=== PATIENT | male | born 1945 | race Caucasian/White ===

== ENCOUNTER → 2017-10-05 08:44 | Outpatient (CLI) | payer MEDICARE, OTHER, SELFPAY ==
[2017-10-05 13:22] LABS: Basophils % 0.3 % (0.1-2.0); Eosinophils # 0.4 K/mm3 (0.0-0.4); Eosinophils % 3.1 % (0.1-12.0); Hematocrit 33.7 % (42.0-52.0); Hemoglobin 10.8 g/dL (14.1-18.0); Lymphocytes # 3.4 K/mm3 (0.7-4.5); Lymphocytes % 29.6 K/mm3 (10-50); Mean Corpuscular Hemoglobin 30.7 pg (27.0-31.2); Mean Corpuscular Volume 95.9 fl (80-94); Mean Platelet Volume 8.1 fl (7.4-10.4); Monocytes # 0.7 K/mm3 (0.1-1.0); Monocytes % 5.8 % (1.7-9.3); Neutrophils % 61.4 % (37.0-80.0); Platelet Count 242 K/mm3 (142-424); Red Blood Count 3.51 M/mm3 (4.60-6.20); Red Cell Distribution Width 13.4 % (11.5-17.5); White Blood Count 11.4 K/mm3 (4.8-10.8)
[2017-10-05 13:48] LABS: Albumin Level 3.5 gm/dL (3.4-5.0); Anion Gap 14.6 mEq/L (5-15); Blood Urea Nitrogen 23 mg/dL (7-18); Calcium 8.9 mg/dL (8.5-10.1); Carbon Dioxide 27 mmol/L (21.0-32.0); Chloride 103 mmol/L (98-107); Estimated Glomerular Filt Rate 16 ml/min (>60); Ferritin 544 ng/mL (8-388); GFR (African American) 20 ML/MIN (>60); Glucose 209 mg/dL (74-106); Phosphorous 4.2 mg/dL (2.4-4.9); Potassium 4.6 mmoL/L (3.5-5.1); Sodium 140 mmol/L (136-145); Uric Acid 6.2 mg/dL (2.6-7.2)
[2017-10-05 13:54] LABS: Creatinine,Serum 3.65 mg/dL (0.70-1.30)
[2017-10-06 09:17] LABS: Iron 76 ug/dL (38-169); UIBC 153 ug/dL (111-343)
[2017-10-07 06:28] LABS: Iron Saturation 33 (15-55); Parathyroid Hormone Intact 36 pg/mL (15-65); Vitamin D 25 Hydroxy 45.4 ng/mL (30.0-100.0)
== END ==
PROVIDERS: PCP Family Medicine; Visit Provider Internal Medicine Nephrology
DX: E78.5 Hyperlipidemia, unspecified (principal); N18.9 Chronic kidney disease, unspecified; I10 Essential (primary) hypertension; N18.4 Chronic kidney disease, stage 4 (severe); E55.9 Vitamin D deficiency, unspecified; E11.21 Type 2 diabetes mellitus with diabetic nephropathy; E11.40 Type 2 diabetes mellitus with diabetic neuropathy, unspecified; E11.319 Type 2 diabetes mellitus with unspecified diabetic retinopathy without macular edema; M10.9 Gout, unspecified; E87.5 Hyperkalemia
CPT/HCPCS: 36415; 80069; 82652; 82728; 83550; 83970; 84550; 85025

== ENCOUNTER → 2017-10-07 10:44 | Outpatient (REF) | payer MEDICARE, MEDICAID, SELFPAY ==
[2017-10-08 09:19] LABS: Creatinine, Urine 67.4 mg/dL (Not Estab.); Microalbumin, Urine 9.7 ug/mL (Not Estab.)
== END ==
LOC: LAB 10:44
PROVIDERS: Visit Provider Internal Medicine Nephrology
DX: N18.9 Chronic kidney disease, unspecified (principal); I10 Essential (primary) hypertension; N18.4 Chronic kidney disease, stage 4 (severe); E55.9 Vitamin D deficiency, unspecified; E11.21 Type 2 diabetes mellitus with diabetic nephropathy; E11.40 Type 2 diabetes mellitus with diabetic neuropathy, unspecified; E11.319 Type 2 diabetes mellitus with unspecified diabetic retinopathy without macular edema; M10.9 Gout, unspecified; E78.5 Hyperlipidemia, unspecified; E87.5 Hyperkalemia
CPT/HCPCS: 82043; 82570

== ENCOUNTER → 2017-11-07 10:07 | Outpatient (CLI) | payer MEDICARE, OTHER, SELFPAY ==
[2017-11-07 10:17] LABS: Basophils % 0.3 % (0.1-2.0); Eosinophils # 0.2 K/mm3 (0.0-0.4); Eosinophils % 1.4 % (0.1-12.0); Hemoglobin 10.7 g/dL (14.1-18.0); Lymphocytes # 1.6 K/mm3 (0.7-4.5); Lymphocytes % 14.2 K/mm3 (10-50); Mean Corpuscular HGB Conc 31.4 g/dL (31.8-35.4); Mean Corpuscular Hemoglobin 29.6 pg (27.0-31.2); Mean Corpuscular Volume 94.3 fl (80-94); Mean Platelet Volume 8.8 fl (7.4-10.4); Monocytes # 0.8 K/mm3 (0.1-1.0); Monocytes % 6.8 % (1.7-9.3); Neutrophils # 8.7 K/mm3 (1.8-7.8); Neutrophils % 77.3 % (37.0-80.0); Platelet Count 219 K/mm3 (142-424); Red Cell Distribution Width 13.3 % (11.5-17.5); White Blood Count 11.2 K/mm3 (4.8-10.8)
[2017-11-07 10:25] LABS: Albumin Level 3.5 gm/dL (3.4-5.0); Anion Gap 10.8 mEq/L (5-15); Blood Urea Nitrogen 41 mg/dL (7-18); Calcium 9.2 mg/dL (8.5-10.1); Carbon Dioxide 29 mmol/L (21.0-32.0); Chloride 102 mmol/L (98-107); Creatinine,Serum 3.39 mg/dL (0.70-1.30); Estimated Glomerular Filt Rate 18 ml/min (>60); GFR (African American) 22 ML/MIN (>60); Glucose 206 mg/dL (74-106); Phosphorous 4.5 mg/dL (2.4-4.9); Potassium 4.8 mmoL/L (3.5-5.1); Sodium 137 mmol/L (136-145)
== END ==
PROVIDERS: PCP Family Medicine; Visit Provider Internal Medicine Nephrology
DX: N18.9 Chronic kidney disease, unspecified (principal)
CPT/HCPCS: 36415; 80069; 85025

== ENCOUNTER 2017-11-07 16:46 | Emergency (ER) | payer MEDICARE, MEDICAID, SELFPAY ==
[2017-11-07 16:46] VITALS: BP 174/75; PULSE 86; RESP 20; TEMP 37.1; O2SAT 98; BMI 28.3
--- NOTE | 2017-11-07 17:04 | XR_ITS ---
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 There is flexion deformity of digits 1, 2, and 4. No acute fracture or dislocation evident. IMPRESSION: Hammertoe deformity of first, second, and fourth toes. 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
[2017-11-07 17:31] LABS: Uric Acid 6.5 mg/dL (2.6-7.2)
[2017-11-07 17:38] LABS: Lactic Acid 1.1 mmol/L (0.4-2.0)
[2017-11-07 18:16] VITALS: BP 189/79; PULSE 83; RESP 18; TEMP 37; O2SAT 96
--- NOTE | 2017-11-07 18:35 | [facility].EDGENADL ---
ED Disposition Clinical Impression: Right foot pain, Chronic renal failure, stage 3 (moderate) Disposition: Home, Self-Care Condition on Discharge: Good Instructions: High Blood Pressure, Chronic Renal Failure, DI for Foot Pain Additional Instructions: Please follow-up with the porter head, Dr. Nanette Mcfadden, within the next 1-2 days, for additional outpatient workup. Please follow-up with your rabbet operator, Dr. Booker, scheduled on . Please increase your Amlodipine/Norvasc from 5 mg daily to 10 mg daily. Take the leftover pills at home (two 5mg pills), prior to filling the new prescription (10mg). Prescriptions: Amlodipine Besylate [Norvasc 10mg tablet] 10 mg PO DAILY #90 tab Referrals: Nessa Mcfadden DPM [Physician] - Jd Fox [Primary Care Provider] - Luis Angel Booker [Referring] - Time of Disposition: 18:44 - Critical Care Critical Care Time: No Attestation: On 11/07/17, the high probability of a clinically significant, sudden or life threatening deterioration of the following system(s) required my full and direct attention, intervention and personal management. The time I documented below is in addition to time spent performing reported procedures but includes the following listed in this critical care notation. Medical Decision Making - Medical Records Medical records reviewed: Yes: I reviewed the patient's medical records. - Zac Inquiry Pt receiving controlled substance: No Vital Signs: 11/07/17 16:46 11/07/17 18:16 11/07/17 19:23 Temperature 98.8 F 98.6 F 98.4 F Temperature Source Oral Oral Oral Pulse Rate 89 Pulse Rate [Right Radial] 86 83 Respiratory Rate 20 18 20 Blood Pressure 166/99 Blood Pressure [Right Arm] 174/75 189/79 Blood Pressure Mean [Right Arm] 108 115 Blood Pressure Source [Right Arm] Automatic Cuff Automatic Cuff Blood Pressure Position Sitting Blood Pressure Position [Right Arm] Sitting Supine 02 Sat by Pulse Oximetry 98 96 Oxygen Delivery Method Room Air Room Air Room Air - Lab Data Lab results reviewed: Yes: I reviewed the patient's lab results. Lab Results 11/07/17 17:10: Lactic Acid 1.1 11/07/17 17:10: Uric Acid 6.5 Orders (Tests/Meds): ED MEDICATIONS Discontinued Medications Generic Name Dose Route Start Last Admin Trade Name Freq PRN Reason Stop Dose Admin Clonidine HCl 0.2 mg 11/07/17 18:43 11/07/17 19:05 Clonidine 0.2mg Tablet PO 11/07/17 18:44 0.2 mg ONCE ONE Administration - Radiology Data #1 Image(s): Foot/Toes (right) Image Reviewed: Yes I reviewed the patient's radiology results, Yes I reviewed the patient's radiology image, Yes I have reviewed radiologist's interpretation no fx, hammertoe deformity - Reevaluation(s) Time: 18:40 Reevaluation #1: Patient's kidney function appears to be worsening, patient strongly encouraged to follow-up with rabbet operator, noted to initiate hemodialysis. Also refer him to follow-up with a porter head regarding his right foot hammertoes. General Adult HPI - General Chief complaint: PAIN Stated complaint: CHRONIC R FOOT PAIN Time Seen by Provider: 11/07/17 17:40 Mode of Arrival: EMS Limitations: No Limitations Description of Symptoms (Recalled from ER Triage Doc. by RN): PAIN AND SWELLING TO HIS FOOT , NO OPEN AREAS PAIN X1 WEEK , HOME HEALTH NURSE REQUESTED HIM TO COME TO THE ER - History of Present Illness HPI narrative: Patient is here with right foot pain, and right foot swelling. He has been previously told that he has chronic renal failure and he will need dialysis, but the patient has refused so far to undergo hemodialysis. He has an appointment with the rabbet operator, which he admits on deliberately putting off, because he is afraid he may be told again, that he needs to go through hemodialysis. His right foot pain is nontraumatic, he has mild swelling, for the past couple of weeks. MD complaint: Right foot pain Onset (ago): week(s) (3) Loc
--- NOTE | 2017-11-07 18:41 | ED_ITS ---
ED Disposition Clinical Impression: Right foot pain, Chronic renal failure, stage 3 (moderate) Disposition: Home, Self-Care Condition on Discharge: Good Instructions: High Blood Pressure, Chronic Renal Failure, DI for Foot Pain Additional Instructions: Please follow-up with the park ranger, Dr. Nanette Mcfadden, within the next 1-2 days, for additional outpatient workup. Please follow-up with your stone crusher operator, Dr. Booker, scheduled on . Please increase your Amlodipine/Norvasc from 5 mg daily to 10 mg daily. Take the leftover pills at home (two 5mg pills), prior to filling the new prescription (10mg). Prescriptions: Amlodipine Besylate [Norvasc 10mg tablet] 10 mg PO DAILY #90 tab Referrals: Nessa Mcfadden DPM [Physician] - Jd Fox [Primary Care Provider] - Luis Angel Booker [Referring] - Time of Disposition: 18:44 - Critical Care Critical Care Time: No Attestation: On 11/07/17, the high probability of a clinically significant, sudden or life threatening deterioration of the following system(s) required my full and direct attention, intervention and personal management. The time I documented below is in addition to time spent performing reported procedures but includes the following listed in this critical care notation. Medical Decision Making - Medical Records Medical records reviewed: Yes: I reviewed the patient's medical records. - Zac Inquiry Pt receiving controlled substance: No Vital Signs: 11/07/17 16:46 11/07/17 18:16 11/07/17 19:23 Temperature 98.8 F 98.6 F 98.4 F Temperature Source Oral Oral Oral Pulse Rate 89 Pulse Rate [Right Radial] 86 83 Respiratory Rate 20 18 20 Blood Pressure 166/99 Blood Pressure [Right Arm] 174/75 189/79 Blood Pressure Mean [Right Arm] 108 115 Blood Pressure Source [Right Arm] Automatic Cuff Automatic Cuff Blood Pressure Position Sitting Blood Pressure Position [Right Arm] Sitting Supine 02 Sat by Pulse Oximetry 98 96 Oxygen Delivery Method Room Air Room Air Room Air - Lab Data Lab results reviewed: Yes: I reviewed the patient's lab results. Lab Results 11/07/17 17:10: Lactic Acid 1.1 11/07/17 17:10: Uric Acid 6.5 Orders (Tests/Meds): ED MEDICATIONS Discontinued Medications Generic Name Dose Route Start Last Admin Trade Name Freq PRN Reason Stop Dose Admin Clonidine HCl 0.2 mg 11/07/17 18:43 11/07/17 19:05 Clonidine 0.2mg Tablet PO 11/07/17 18:44 0.2 mg ONCE ONE Administration - Radiology Data #1 Image(s): Foot/Toes (right) Image Reviewed: Yes I reviewed the patient's radiology results, Yes I reviewed the patient's radiology image, Yes I have reviewed radiologist's interpretation no fx, hammertoe deformity - Reevaluation(s) Time: 18:40 Reevaluation #1: Patient's kidney function appears to be worsening, patient strongly encouraged to follow-up with stone crusher operator, noted to initiate hemodialysis. Also refer him to follow-up with a park ranger regarding his right foot hammertoes. General Adult HPI - General Chief complaint: PAIN Stated complaint: CHRONIC R FOOT PAIN Time Seen by Provider: 11/07/17 17:40 Mode of Arrival: EMS Limitations: No Limitations Description of Symptoms (Recalled from ER Triage Doc. by RN): PAIN AND SWELLING TO HIS FOOT , NO OPEN AREAS PAIN X1 WEEK , HOME HEALTH NURSE REQUES
[2017-11-07 19:23] VITALS: BP 166/99; PULSE 89; RESP 20; TEMP 36.9; O2SAT 95
== END 2017-11-07 19:24 | disposition home or self-care (01) ==
PROVIDERS: Emergency Provider Emergency Medicine; Family Provider Family Medicine; PCP Family Medicine
DX: M79.671 Pain in right foot (principal); N18.3 Chronic kidney disease, stage 3 (moderate)
CPT/HCPCS: 36415; 73630; 80069; 83605; 84550; 85025; 99283

== ENCOUNTER → 2017-12-08 10:47 | Outpatient (REF) | payer MEDICARE, MEDICAID, SELFPAY ==
[2017-12-08 13:28] LABS: Hemoglobin A1C 5.8 % (0.0-7.0)
== END ==
LOC: LAB.CARL 10:47
PROVIDERS: Visit Provider Podiatrist
DX: E11.42 Type 2 diabetes mellitus with diabetic polyneuropathy (principal); L97.521 Non-pressure chronic ulcer of other part of left foot limited to breakdown of skin; L97.511 Non-pressure chronic ulcer of other part of right foot limited to breakdown of skin
CPT/HCPCS: 83036

== ENCOUNTER → 2017-12-28 10:21 | Outpatient (CLI) | payer MEDICARE, MEDICAID, SELFPAY ==
[2017-12-28 13:48] LABS: Basophils # 0.1 K/mm3 (0-0.2); Basophils % 0.6 % (0.1-2.0); Eosinophils # 0.3 K/mm3 (0.0-0.4); Eosinophils % 3.6 % (0.1-12.0); Hematocrit 26.9 % (42.0-52.0); Hemoglobin 8.6 g/dL (14.1-18.0); Lymphocytes # 1.8 K/mm3 (0.7-4.5); Lymphocytes % 21.6 K/mm3 (10-50); Mean Corpuscular HGB Conc 31.9 g/dL (31.8-35.4); Mean Corpuscular Hemoglobin 28.6 pg (27.0-31.2); Mean Corpuscular Volume 89.6 fl (80-94); Mean Platelet Volume 7.7 fl (7.4-10.4); Monocytes # 0.6 K/mm3 (0.1-1.0); Monocytes % 6.9 % (1.7-9.3); Neutrophils # 5.6 K/mm3 (1.8-7.8); Neutrophils % 67.4 % (37.0-80.0); Platelet Count 257 K/mm3 (142-424); Red Cell Distribution Width 13.8 % (11.5-17.5); White Blood Count 8.2 K/mm3 (4.8-10.8)
[2017-12-28 14:14] LABS: Albumin Level 3.4 gm/dL (3.4-5.0); Anion Gap 15.6 mEq/L (5-15); Blood Urea Nitrogen 31 mg/dL (7-18); Carbon Dioxide 26 mmol/L (21.0-32.0); Chloride 102 mmol/L (98-107); Estimated Glomerular Filt Rate 12 ml/min (>60); GFR (African American) 15 ML/MIN (>60); Glucose 138 mg/dL (74-106); Phosphorous 4.4 mg/dL (2.4-4.9); Potassium 4.6 mmoL/L (3.5-5.1); Sodium 139 mmol/L (136-145)
[2017-12-28 14:17] LABS: Creatinine,Serum 4.73 mg/dL (0.70-1.30)
== END ==
PROVIDERS: PCP Family Medicine; Visit Provider Internal Medicine Nephrology
DX: N18.4 Chronic kidney disease, stage 4 (severe) (principal); I10 Essential (primary) hypertension; E55.9 Vitamin D deficiency, unspecified; E11.21 Type 2 diabetes mellitus with diabetic nephropathy; E11.40 Type 2 diabetes mellitus with diabetic neuropathy, unspecified; E11.319 Type 2 diabetes mellitus with unspecified diabetic retinopathy without macular edema; M10.9 Gout, unspecified; E87.5 Hyperkalemia; E78.5 Hyperlipidemia, unspecified
CPT/HCPCS: 36415; 80069; 85025

== ENCOUNTER → 2018-01-24 11:35 | Outpatient (CLI) | payer MEDICARE, MEDICAID, SELFPAY ==
[2018-01-24 13:21] LABS: Basophils % 0.2 % (0.1-2.0); Eosinophils # 0.4 K/mm3 (0.0-0.4); Eosinophils % 4.4 % (0.1-12.0); Hematocrit 27.8 % (42.0-52.0); Hemoglobin 8.5 g/dL (14.1-18.0); Lymphocytes # 1.8 K/mm3 (0.7-4.5); Lymphocytes % 21.6 K/mm3 (10-50); Mean Corpuscular HGB Conc 30.5 g/dL (31.8-35.4); Mean Corpuscular Hemoglobin 27.6 pg (27.0-31.2); Mean Corpuscular Volume 90.5 fl (80-94); Mean Platelet Volume 7.7 fl (7.4-10.4); Monocytes # 0.6 K/mm3 (0.1-1.0); Monocytes % 7.2 % (1.7-9.3); Neutrophils # 5.6 K/mm3 (1.8-7.8); Neutrophils % 66.6 % (37.0-80.0); Platelet Count 203 K/mm3 (142-424); Red Blood Count 3.07 M/mm3 (4.60-6.20); Red Cell Distribution Width 14.6 % (11.5-17.5); White Blood Count 8.4 K/mm3 (4.8-10.8)
[2018-01-24 13:52] LABS: Albumin Level 3.2 gm/dL (3.4-5.0); Anion Gap 14.6 mEq/L (5-15); Blood Urea Nitrogen 38 mg/dL (7-18); Calcium 8.7 mg/dL (8.5-10.1); Carbon Dioxide 27 mmol/L (21.0-32.0); Chloride 105 mmol/L (98-107); Estimated Glomerular Filt Rate 14 ml/min (>60); GFR (African American) 17 ML/MIN (>60); Glucose 131 mg/dL (74-106); Potassium 4.6 mmoL/L (3.5-5.1); Sodium 142 mmol/L (136-145)
[2018-01-24 14:15] LABS: Creatinine,Serum 4.09 mg/dL (0.70-1.30)
== END ==
PROVIDERS: Visit Provider Internal Medicine Nephrology
DX: I10 Essential (primary) hypertension (principal); N18.4 Chronic kidney disease, stage 4 (severe); E55.9 Vitamin D deficiency, unspecified; E11.21 Type 2 diabetes mellitus with diabetic nephropathy; E11.40 Type 2 diabetes mellitus with diabetic neuropathy, unspecified; E11.319 Type 2 diabetes mellitus with unspecified diabetic retinopathy without macular edema; M10.9 Gout, unspecified; E78.5 Hyperlipidemia, unspecified; E87.5 Hyperkalemia
CPT/HCPCS: 36415; 80069; 85025

== ENCOUNTER → 2018-03-29 09:42 | Outpatient (CLI) | payer MEDICARE, MEDICAID, SELFPAY ==
[2018-03-29 13:42] LABS: Basophils % 0.3 % (0.1-2.0); Eosinophils # 0.3 K/mm3 (0.0-0.4); Eosinophils % 3.5 % (0.1-12.0); Hematocrit 32.3 % (42.0-52.0); Hemoglobin 10.1 g/dL (14.1-18.0); Lymphocytes # 2.5 K/mm3 (0.7-4.5); Lymphocytes % 27.7 K/mm3 (10-50); Mean Corpuscular HGB Conc 31.3 g/dL (31.8-35.4); Mean Corpuscular Hemoglobin 27.9 pg (27.0-31.2); Mean Corpuscular Volume 89.3 fl (80-94); Mean Platelet Volume 7.7 fl (7.4-10.4); Monocytes # 0.6 K/mm3 (0.1-1.0); Monocytes % 6.7 % (1.7-9.3); Neutrophils # 5.6 K/mm3 (1.8-7.8); Neutrophils % 61.8 % (37.0-80.0); Platelet Count 199 K/mm3 (142-424); Red Blood Count 3.62 M/mm3 (4.60-6.20); Red Cell Distribution Width 14.8 % (11.5-17.5); White Blood Count 9.1 K/mm3 (4.8-10.8)
[2018-03-29 13:48] LABS: Albumin Level 3.3 gm/dL (3.4-5.0); Anion Gap 11.7 mEq/L (5-15); Blood Urea Nitrogen 28 mg/dL (7-18); Calcium 9.1 mg/dL (8.5-10.1); Carbon Dioxide 31 mmol/L (21.0-32.0); Chloride 107 mmol/L (98-107); Estimated Glomerular Filt Rate 17 ml/min (>60); GFR (African American) 20 ML/MIN (>60); Glucose 82 mg/dL (74-106); Potassium 4.7 mmoL/L (3.5-5.1); Sodium 145 mmol/L (136-145)
[2018-03-29 13:58] LABS: Creatinine,Serum 3.58 mg/dL (0.70-1.30)
[2018-03-31 09:09] LABS: Parathyroid Hormone Intact 45 pg/mL (15-65)
== END ==
PROVIDERS: Visit Provider Internal Medicine Nephrology
DX: N18.4 Chronic kidney disease, stage 4 (severe) (principal); E11.21 Type 2 diabetes mellitus with diabetic nephropathy; E87.5 Hyperkalemia; E78.5 Hyperlipidemia, unspecified; E55.9 Vitamin D deficiency, unspecified
CPT/HCPCS: 36415; 80069; 83970; 85025

== ENCOUNTER → 2018-03-30 11:39 | Outpatient (REF) | payer MEDICARE, MEDICAID, SELFPAY ==
[2018-03-30 14:38] LABS: Creatinine,Urine Random 50 mg/dL (20-320); Total Protein,Urine Random 25.7 mg/dL (0.0-11.9)
== END ==
LOC: LAB.CARL 11:39
PROVIDERS: Visit Provider Internal Medicine Nephrology
DX: N18.9 Chronic kidney disease, unspecified (principal); N18.4 Chronic kidney disease, stage 4 (severe); E55.9 Vitamin D deficiency, unspecified; E11.21 Type 2 diabetes mellitus with diabetic nephropathy
CPT/HCPCS: 82570; 84155

== ENCOUNTER → 2018-06-08 10:38 | Outpatient (CLI) | payer MEDICARE, MEDICAID, SELFPAY ==
[2018-06-08 10:47] LABS: Microscopic, Urine URINE MICROSCOPIC (MICROSCOPIC)
[2018-06-08 13:24] LABS: Basophils % 0.4 % (0.1-2.0); Eosinophils # 0.3 K/mm3 (0.0-0.4); Eosinophils % 2.5 % (0.1-12.0); Hematocrit 34.8 % (42.0-52.0); Hemoglobin 10.8 g/dL (14.1-18.0); Lymphocytes # 2.9 K/mm3 (0.7-4.5); Mean Corpuscular HGB Conc 30.9 g/dL (31.8-35.4); Mean Corpuscular Volume 90.8 fl (80-94); Mean Platelet Volume 7.4 fl (7.4-10.4); Monocytes # 0.6 K/mm3 (0.1-1.0); Monocytes % 5.4 % (1.7-9.3); Neutrophils # 6.9 K/mm3 (1.8-7.8); Neutrophils % 64.7 % (37.0-80.0); Platelet Count 259 K/mm3 (142-424); Red Blood Count 3.84 M/mm3 (4.60-6.20); Red Cell Distribution Width 15.2 % (11.5-17.5); White Blood Count 10.7 K/mm3 (4.8-10.8)
[2018-06-08 13:31] LABS: Appearance,Urine CLEAR (Clear); Bilirubin,Urine Negative (Negative); Blood, Urine Negative (Negative); Color,Urine YELLOW (Yellow); Glucose,Urine (UA) Negative (Negative); Ketones,Urine Negative (Negative); Leukocyte Esterase,Urine TRACE (Negative); Nitrate,Urine Negative (Negative); PH,Urine 6.5 (5.0-8.5); Protein,Urine 1+ (Negative); Specific Gravity, Urine 1.015 (1.005-1.030)
[2018-06-08 14:27] LABS: Bacteria,Urine 1+ /lpf; Squamous Epithelial Cell,Urine Occasional #/hpf (0-5)
[2018-06-08 15:02] LABS: Albumin Level 3.4 gm/dL (3.4-5.0); Blood Urea Nitrogen 27 mg/dL (7-18); Calcium 8.7 mg/dL (8.5-10.1); Carbon Dioxide 29 mmol/L (21.0-32.0); Chloride 103 mmol/L (98-107); Estimated Glomerular Filt Rate 17 ml/min (>60); Ferritin 412 ng/mL (8-388); GFR (African American) 21 ML/MIN (>60); Glucose 53 mg/dL (74-106); Phosphorous 3.9 mg/dL (2.4-4.9); Sodium 140 mmol/L (136-145)
[2018-06-08 15:17] LABS: Creatinine,Serum 3.52 mg/dL (0.70-1.30)
[2018-06-08 15:31] LABS: Creatinine,Urine Random 124 mg/dL (20-320); Total Protein,Urine Random 63.3 mg/dL (0.0-11.9)
[2018-06-09 10:18] LABS: Iron 44 ug/dL (38-169); UIBC 208 ug/dL (111-343)
[2018-06-09 18:08] LABS: Iron Saturation 17 % (15-55); Parathyroid Hormone Intact 59 pg/mL (15-65)
== END ==
PROVIDERS: PCP Family Medicine; Visit Provider Internal Medicine Nephrology
DX: I10 Essential (primary) hypertension (principal); N18.4 Chronic kidney disease, stage 4 (severe); E55.9 Vitamin D deficiency, unspecified; E11.21 Type 2 diabetes mellitus with diabetic nephropathy; E11.40 Type 2 diabetes mellitus with diabetic neuropathy, unspecified; E11.319 Type 2 diabetes mellitus with unspecified diabetic retinopathy without macular edema; M10.9 Gout, unspecified; E87.5 Hyperkalemia; E78.5 Hyperlipidemia, unspecified
CPT/HCPCS: 36415; 80069; 81001; 82570; 82652; 82728; 83540; 83550; 83970; 84155; 85025

== ENCOUNTER → 2018-06-19 11:36 | Outpatient (CLI) | payer MEDICARE, MEDICAID, SELFPAY ==
[2018-06-19 13:59] LABS: Hemoglobin A1C 5.8 % (0.0-7.0)
== END ==
PROVIDERS: PCP Family Medicine; Visit Provider Family Medicine
DX: E11.21 Type 2 diabetes mellitus with diabetic nephropathy (principal)
CPT/HCPCS: 83036

== ENCOUNTER → 2020-10-30 07:31 | Outpatient (CLI) | payer MEDICARE, MEDICAID, SELFPAY ==
[2020-10-30 13:50] LABS: Chloride 104 mmol/L (98-107)
[2020-10-30 13:51] LABS: Potassium 4.5 mmoL/L (3.5-5.1); Sodium 136 mmol/L (136-145)
[2020-10-30 13:52] LABS: Basophils # 0.1 K/mm3 (0-0.2); Basophils % 0.6 % (0.1-2.0); Eosinophils # 0.2 K/mm3 (0.0-0.4); Eosinophils % 1.7 % (0.1-12.0); Hematocrit 31.1 % (42.0-52.0); Hemoglobin 9.7 g/dL (14.1-18.0); Lymphocytes # 2.1 K/mm3 (0.7-4.5); Lymphocytes % 17.1 % (10-50); Mean Corpuscular HGB Conc 31.1 g/dL (31.8-35.4); Mean Corpuscular Hemoglobin 28.9 pg (27.0-31.2); Mean Platelet Volume 8.4 fl (7.4-10.4); Monocytes # 0.6 K/mm3 (0.1-1.0); Monocytes % 4.6 % (1.7-9.3); Neutrophils # 9.2 K/mm3 (1.8-7.8); Neutrophils % 76.1 % (37.0-80.0); Platelet Count 334 K/mm3 (142-424); Red Blood Count 3.34 M/mm3 (4.60-6.20); Red Cell Distribution Width 14.8 % (11.5-17.5); White Blood Count 12.1 K/mm3 (4.8-10.8)
[2020-10-30 13:53] LABS: Alanine Aminotransferase 17 U/L (12-78); Albumin Level 3.3 g/dl (3.5-5.0); Alkaline Phosphatase 84 U/L (38-126); Anion Gap 14.5 mEq/L (5-15); Aspartate Amino Transferase 22 U/L (17-59); Bilirubin,Total 0.6 mg/dl (0.2-1.3); Carbon Dioxide 22 mmol/L (22.0-30.0); Estimated Glomerular Filt Rate 8 ml/min (>60); GFR (African American) 9 ML/MIN (>60); Globulin 3.2 g/dL (1.3-3.2); Total Protein,Serum 6.5 g/dl (6.3-8.2)
[2020-10-30 13:54] LABS: Calcium 8.4 mg/dl (8.4-10.2); Cholesterol 92 mg/dl (140-200); Glucose 136 mg/dl (74-100); HDL Cholesterol 23 mg/dl (40-60); Triglycerides 196 mg/dl (30-150); VLDL Cholesterol 39 mg/dL (0-40)
[2020-10-30 13:58] LABS: Blood Urea Nitrogen 99 mg/dl (9-20)
[2020-10-30 14:07] LABS: Direct LDL Cholesterol < 30.00 mg/dL (100-129)
[2020-10-30 14:08] LABS: Uric Acid 15.4 mg/dl (3.5-8.5)
[2020-10-30 14:21] LABS: Hemoglobin A1C 6.2 % (4.0-6.0)
== END ==
PROVIDERS: Visit Provider Nurse Practitioner Family
DX: E11.628 Type 2 diabetes mellitus with other skin complications (principal); M86.9 Osteomyelitis, unspecified; N18.30 Chronic kidney disease, stage 3 unspecified
CPT/HCPCS: 36415; 80053; 80061; 83036; 84550; 85025